=== PATIENT | female | born 1985 | race Caucasian/White ===

== ENCOUNTER 2018-02-07 00:34 | Emergency (ER) | payer BC, OTHER ==
[2018-02-07 01:50] LABS: Appearance,Urine Clear (Clear); Bilirubin,Urine Negative (Negative); Blood,Urine Negative (Negative); Color,Urine Yellow; Glucose,Urine (UA) Negative (Negative); Ketones,Urine 1+ (Negative); Leukocyte Esterase,Urine Small (Negative); Mucus,Urine Few /hpf; Nitrite,Urine Negative (Negative); PH, Urine 5.5 (5.0-8.0); Protein,Urine Trace (Negative); RBC,Urine 1 /hpf (0-5); Specific Gravity,Urine 1.029 (1.001-1.035); Squamous Epithelial Cell,Urine 3 /hpf (0-4); WBC,Urine 2 /hpf (0-5)
--- NOTE | 2018-02-07 02:08 | ED ---
General Adult HPI - General Chief complaint: Allergic Reaction Stated complaint: Allergic Reaction Time Seen by Provider: 02/07/18 00:44 Source: patient Mode of arrival: ambulatory Limitations: no limitations - History of Present Illness Initial comments: 32-year-old female patient presents the emergency department today for evaluation of right hand tingling, right foot tingling, and dark odorous urine. Patient states that she has been taking Flagyl for the last couple of days. States that the symptoms started after taking that. Patient denies any head injuries. Denies any headache, nausea, vomiting, dizziness, or weakness currently. Patient denies any new activities with her hands or feet. Patient denies any recent rash, fever, chills, shortness breath, chest pain, abdominal pain, diarrhea, constipation, back pain, hematuria, dysuria, urinary urgency, urinary frequency, visual changes, or any other complaints. - Related Data Home Medications Medication Instructions Recorded Confirmed Ferrous Sulfate [Feosol] 325 mg PO DAILY 01/25/16 01/25/16 Multivitamins, Thera [Multivitamin] 1 tab PO DAILY 01/25/16 01/25/16 Allergies Allergy/AdvReac Type Severity Reaction Status Date / Time Sulfa (Sulfonamide Allergy Unknown Verified 01/25/16 14:30 Antibiotics) Childhood metronidazole [From Flagyl] AdvReac Unknown Verified 02/07/18 00:42 Review of Systems ROS Statement: Those systems with pertinent positive or pertinent negative responses have been documented in the HPI. ROS Other: All systems not noted in ROS Statement are negative. Past Medical History Past Medical History: No Reported History Additional Past Medical History / Comment(s): migraines, syncope 01/25/16 History of Any Multi-Drug Resistant Organisms: None Reported Additional Past Surgical History / Comment(s): umbilical hernia repair Past Anesthesia/Blood Transfusion Reactions: No Reported Reaction Past Psychological History: No Psychological Hx Reported Smoking Status: Never smoker Past Alcohol Use History: Rare Past Drug Use History: None Reported - Past Family History Father Family Medical History: No Reported History General Exam Limitations: no limitations General appearance: alert, in no apparent distress, other (so well-developed, well-nourished adult female patient in no acute distress. Vital signs upon presentation are temperature 97.9F, pulse 95, respirations 18, blood pressure 124/81, pulse ox 99% on room air.) Eye exam: Present: normal appearance, PERRL, EOMI. Absent: scleral icterus, conjunctival injection, nystagmus, periorbital swelling ENT exam: Present: normal exam, normal oropharynx, mucous membranes moist Respiratory exam: Present: normal lung sounds bilaterally. Absent: respiratory distress, wheezes, rales, rhonchi, stridor Cardiovascular Exam: Present: regular rate, normal rhythm, normal heart sounds. Absent: systolic murmur, diastolic murmur, rubs, gallop, clicks GI/Abdominal exam: Present: soft, normal bowel sounds. Absent: distended, tenderness, guarding, rebound, rigid Neurological exam: Present: alert, oriented X3, CN II-XII intact, other ( strength in all 4 extremities is 5/5.) Psychiatric exam: Present: normal affect, normal mood Skin exam: Present: warm, dry, intact, normal color. Absent: rash Course Vital Signs 02/07/18 02/07/18 00:36 02:17 Temperature 97.9 F 98.1 F Pulse Rate 95 66 Respiratory 18 16 Rate Blood Pressure 124/81 128/61 O2 Sat by Pulse 99 99 Oximetry Medical Decision Making - Medical Decision Making 32-year-old female patient presented to the emergency department today for evaluation of right hand and foot tingling. Physical examination was unremarkable. Patient was neurologically intact. Urinalysis was obtained and showed no acute signs of infection. I did discuss with patient that numbness and tingling in hands and feet as well as a prickling sensation is a side effect of Flagyl. I did discuss that this could be from the medication. She is instructed to follow-up with her prescribing provider. She is instructed to return here immediately for any new, worsening, or concerning symptoms. She states that the tingling sensation has improved since being here. Return parameters discussed in detail. She verbalizes understanding and agreed with this plan. - Lab Data Lab Results 02/07/18 02/07/18 Range/Units 01:40 01:40 Urine Color Yellow Urine Appearance Clear (Clear) Urine pH 5.5 (5.0-8.0) Ur Specific [place] 1.029 (1.001-1.035) Urine Protein Trace H (Negative) Urine Glucose (UA) Negative (Negative) Urine Ketones 1+ H (Negative) Urine Blood Negative (Negative) Urine Nitrite Negative (Negative) Urine Bilirubin Negative (Negative) Urine Urobilinogen 2.0 (<2.0) mg/dL Ur Leukocyte Esterase Small H (Negative) Urine RBC 1 (0-5) /hpf Urine WBC 2 (0-5) /hpf Ur Squamous Epith Cells 3 (0-4) /hpf Urine Mucus Few H (None) /hpf Urine HCG, Qual Not Detected (Not Detectd) Disposition Clinical Impression: Medication side effect Disposition: HOME SELF-CARE Condition: Good Instructions: Metronidazole (By mouth) Additional Instructions: Follow-up with your doctor and let them know your side effects of the medication. Return here immediately for any new, worsening, or concerning symptoms. Is patient prescribed a controlled substance at d/c from ED?: No Referrals: Ranjith Kong MD [Primary Care Provider] - 1-2 days Time of Disposition: 02:08
[2018-02-07 02:18] VITALS: BP 128/61; PULSE 66; RESP 16; TEMP 98.1
== END 2018-02-07 02:18 | disposition home or self-care (01) ==
LOC: EC 00:34
DX: R20.2 Paresthesia of skin (principal); T37.3X5A Adverse effect of other antiprotozoal drugs, initial encounter; R20.0 Anesthesia of skin; R82.99 Other abnormal findings in urine; Z88.2 Allergy status to sulfonamides; Z88.1 Allergy status to other antibiotic agents
CPT/HCPCS: 81001; 81025; 99283

== ENCOUNTER 2018-02-26 16:00 | Emergency (ER) | payer BC ==
[2018-02-26 16:42] VITALS: PULSE 80; RESP 18; TEMP 98.2
--- NOTE | 2018-02-26 17:39 | XR ---
EXAMINATION TYPE: XR foot complete RT DATE OF EXAM: 02/26/2018 COMPARISON: NONE HISTORY: Pain TECHNIQUE: 3 views FINDINGS: I see no fracture nor dislocation. Metatarsals are intact. There are no erosions. IMPRESSION: Negative right foot exam.
[2018-02-26 17:58] VITALS: BP 115/79
--- NOTE | 2018-02-26 18:10 | ED ---
General Adult HPI - General Chief complaint: Extremity Injury, Lower Stated complaint: foot pain Time Seen by Provider: 02/26/18 16:49 Source: patient, RN notes reviewed Mode of arrival: ambulatory Limitations: no limitations - History of Present Illness Initial comments: 32-year-old female presents to the emergency department for a chief complaint of right foot pain. Patient was walking the other day when she felt pain in her right foot. Patient states she had x-rays at her primary care which were negative. Patient then contacted her primary care because the pain was still continuing 2 days later and he stated she should come to the emergency department. Patient states she is able to walk on it but after about 5 minutes begins to her. Patient denies pain in the calf or knee. Patient denies any fevers or chills. Patient denies any other injuries. Patient has any Motrin for the pain. Patient denies chance of .Patient has no other complaints at this time including shortness of breath, chest pain, abdominal pain, nausea or vomiting, headache, or visual changes. - Related Data Home Medications Medication Instructions Recorded Confirmed Ferrous Sulfate [Feosol] 325 mg PO DAILY 01/25/16 01/25/16 Multivitamins, Thera [Multivitamin] 1 tab PO DAILY 01/25/16 01/25/16 Previous Rx's Medication Instructions Recorded Ibuprofen [Motrin] 600 mg PO Q8HR PRN #20 tab 02/26/18 Allergies Allergy/AdvReac Type Severity Reaction Status Date / Time Sulfa (Sulfonamide Allergy Unknown Verified 01/25/16 14:30 Antibiotics) Childhood metronidazole [From Flagyl] AdvReac Unknown Verified 02/07/18 00:42 Review of Systems ROS Statement: Those systems with pertinent positive or pertinent negative responses have been documented in the HPI. ROS Other: All systems not noted in ROS Statement are negative. Past Medical History Past Medical History: No Reported History Additional Past Medical History / Comment(s): migraines, syncope 01/25/16 History of Any Multi-Drug Resistant Organisms: None Reported Past Surgical History: No Surgical Hx Reported Additional Past Surgical History / Comment(s): umbilical hernia repair Past Anesthesia/Blood Transfusion Reactions: No Reported Reaction Past Psychological History: No Psychological Hx Reported Smoking Status: Never smoker Past Alcohol Use History: Rare Past Drug Use History: None Reported - Past Family History Father Family Medical History: No Reported History General Exam Limitations: no limitations General appearance: alert, in no apparent distress Head exam: Present: atraumatic, normocephalic, normal inspection Eye exam: Present: normal appearance ENT exam: Present: normal exam, mucous membranes moist Neck exam: Present: normal inspection. Absent: tenderness, meningismus, lymphadenopathy Respiratory exam: Present: normal lung sounds bilaterally. Absent: respiratory distress, wheezes, rales, rhonchi, stridor Cardiovascular Exam: Present: regular rate, normal rhythm, normal heart sounds. Absent: systolic murmur, diastolic murmur, rubs, gallop, clicks Extremities exam: Present: full ROM (Full range motion of the right foot and digits of the right foot.), tenderness (Tenderness to the dorsal aspect of the right foot.), normal capillary refill (Refill less than 2 seconds and pedal pulse 2+ in the right foot.). Absent: pedal edema, joint swelling (No swelling , redness, or ecchymosis noted in the right foot. No lacerations or breaks in the skin.), calf tenderness (No tenderness in the calf. Negative Homans sign.) Course Vital Signs 02/26/18 02/26/18 02/26/18 16:37 17:46 18:24 Temperature 98.2 F 98.2 F Pulse Rate 80 80 80 Respiratory 18 18 18 Rate Blood Pressure 112/59 115/79 115/79 O2 Sat by Pulse 98 100 100 Oximetry Medical Decision Making - Medical Decision Making 32-year-old female presents to the emergency department for a chief complaint of right foot pain. Pain started when she was walking 2 days ago. Patient had a negative x-ray at that time. When patient contacted her primary care doctor he told her she should come here because the pain was continuing. Patient has full range of motion in the right foot and is able to walk on it. Sensation intact and neurovascular intact. Patient does have tenderness to the dorsal aspect but no swelling or ecchymosis noted. X-ray demonstratesNo fracture or dislocation in the right foot. Patient will follow-up with orthopedics. She will rest ice and elevate the foot. Patient was given an [place] wrap. She will use crutches for walking. She is aware she can return to the emergency Department if she has any worsening symptoms. Disposition Clinical Impression: Foot pain Disposition: HOME SELF-CARE Condition: Good Instructions: Foot Contusion (ED) Additional Instructions: Please take Motrin and Tylenol for pain. Please rest ice and elevate the foot. Please use [place] wrap. Use crutches as needed. Return to the emergency department if you have any worsening symptoms. Prescriptions: Ibuprofen [Motrin] 600 mg PO Q8HR PRN #20 tab PRN Reason: Pain Is patient prescribed a controlled substance at d/c from ED?: No Referrals: Ranjith Kong MD [Primary Care Provider] - 1-2 days Time of Disposition: 18:09
== END 2018-02-26 18:24 | disposition home or self-care (01) ==
LOC: EC 16:00
DX: M79.671 Pain in right foot (principal); Z79.899 Other long term (current) drug therapy; Z88.1 Allergy status to other antibiotic agents; Z88.2 Allergy status to sulfonamides
CPT/HCPCS: 99283

== ENCOUNTER → 2019-03-13 | Outpatient (CLI) | payer BC ==
--- NOTE | 2019-03-15 22:19 | US ---
EXAMINATION TYPE: US thyroid st tissue head/neck DATE OF EXAM: 03/13/2019 COMPARISON: NONE CLINICAL HISTORY: 33-year-old female R22.1 localized swelling mass of neck. Technique: Targeted sonographic examination at the site of patient's palpable abnormality in the subm ental region. FINDINGS: Emulsion Operator notes: Patient feels lump under chin for one month. Lump feels like the size of a pea. Emulsion Operator notes: Scanned directly over where patient feels palpable, under chin, and there is a 0.5 x 0.4 x 0.5 cm hypoechoic lesion with internal flow, probable lymph node. This is centered within th e subcutaneous adipose layer. IMPRESSION: Suspect a prominent 5 mm submental lymph node at the palpable site. Possibly reactive/post inflammato ry. If there is persistence or growth, the area can be reimaged.
== END | disposition home or self-care (01) ==
LOC: RADUSWWP 17:00
PROVIDERS: ATTEND Family Medicine
DX: R22.1 Localized swelling, mass and lump, neck (principal)
CPT/HCPCS: 76536

== ENCOUNTER → 2019-05-05 | Outpatient (CLI) | payer BC ==
--- NOTE | 2019-05-05 13:53 | US ---
EXAMINATION TYPE: US thyroid st tissue head/neck DATE OF EXAM: 05/05/2019 COMPARISON: US CLINICAL HISTORY: R59.1 Enlarged Lymph Nodes. Palp under chin, pt states this is a follow-up exam Probable lymph node under chin where pt feels palpable= 0.6 x 0.3 x 0.5 cm, essentially appears unc hanged IMPRESSION: As above. No significant interval change. No new or enlarging lesion identified. Finding favors benign. Consider repeat imaging if lesion becomes painful or is felt to enlarge clinically.
--- NOTE | 2019-05-05 13:54 | US ---
EXAMINATION TYPE: US axilla RT DATE OF EXAM: 05/05/2019 COMPARISON: NONE CLINICAL HISTORY: R59.1 Enlarged Lymph Nodes. Pt states palpable lump right axilla x few weeks Probable lymph node within right axilla where pt feels palpable= 0.7 x 0.3 x 0.7 cm IMPRESSION: Area of concern is felt to reflect prominent but subcentimeter benign right axillary lym ph node just superficial to the underlying pectoralis muscle in the subcutaneous fat of the right axi lla. Lymph node is presumed benign given subcentimeter size.
--- NOTE | 2019-05-05 15:57 | US ---
EXAMINATION TYPE: US groin RT DATE OF EXAM: 05/05/2019 COMPARISON: NONE CLINICAL HISTORY: R59.1 Enlarged Lymph Nodes. Pt states palpable lump right groin x few weeks Within right groin where pt feels palpable there is a probable lymph node= 1.9 x 0.4 x 1.5 cm IMPRESSION: Elongated prominent but benign-appearing subcentimeter right groin lymph node is seen wi th retention of normal fatty hilum, findings correlate with left groin. No suspicious mass or fluid c ollection is noted.
--- NOTE | 2019-05-06 08:19 | US ---
EXAMINATION TYPE: US groin LT DATE OF EXAM: 05/05/2019 COMPARISON: NONE CLINICAL HISTORY: R59.1 ENLARGED LYMPH NODES. Pt states left groin palp x many years At pt's palpable within left groin there is a probable lymph node= 0.4 x 0.8 x 0.6 cm/ Adjacent to palpable lymph node there is another lymph node= 0.7 cm Prominent but subcentimeter 2 adjacent subcutaneous lymph node in left groin with retention of fatty hilum on 6 images saved. IMPRESSION: As above. Findings correlate with right groin ultrasound. Lymph nodes appear benign. 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
== END | disposition home or self-care (01) ==
LOC: RADUSWWP 12:49
PROVIDERS: ATTEND Family Medicine
DX: R59.1 Generalized enlarged lymph nodes (principal)
CPT/HCPCS: 76536

== ENCOUNTER → 2020-09-07 | Outpatient (CLI) | payer BC ==
--- NOTE | 2020-09-08 12:55 | ECHOF ---
Referral Reason:R00.2 Palpitations MEASUREMENTS -------- HEIGHT: 157.5 cm WEIGHT: 48.1 kg BP: RVIDd: 2.4 cm (< 3.3) IVSd: 0.9 cm (0.6 - 1.1) LVIDd: 3.9 cm (3.9 - 5.3) LVPWd: 0.9 cm (0.6 - 1.1) IVSs: 1.2 cm LVIDs: 2.2 cm LVPWs: 1.6 cm LAESV Index (A-L): 18.64 ml/m Ao Diam: 2.5 cm (2.0 - 3.7) AV Cusp: 1.3 cm (1.5 - 2.6) LA Diam: 2.7 cm (2.7 - 3.8) MV EXCURSION: 22.396 mm (> 18.000) MV EF SLOPE: 82 mm/s (70 - 150) EPSS: 0.3 cm MV E Javon: 1.06 m/s MV DecT: 168 ms MV A Javon: 0.57 m/s MV E/A Ratio: 1.85 RAP: 5.00 mmHg RVSP: 17.96 mmHg FINDINGS -------- Sinus rhythm. This was a technically adequate study. The left ventricular size is normal. Left ventricular wall thickness is normal. There is normal g lobal left ventricular contractility. Overall left ventricular systolic function is normal with, an EF between 55 - 60 %. The diastolic filling pattern is normal for the age of the patient 7.00. The right ventricle is normal in size. Normal LA size by volume 22+/-6 ml/m2. The right atrial size is normal. Interatrial and interventricular septum intact. The aortic valve is trileaflet, and appears structurally normal. No aortic stenosis or regurgitation. The mitral valve is normal. No mitral regurgitation. Trace tricuspid regurgitation present. There is no evidence of pulmonary hypertension. The right ventricular systolic pressure, as measured by Doppler, is 17.96mmHg. Trace/mild (physiologic) pulmonic regurgitation. The aortic root size is normal. Normal inferior vena cava with normal inspiratory collapse consistent with estimated right atrial pre ssure of 5 mmHg. There is no pericardial effusion. CONCLUSIONS -------- 1. There is normal global left ventricular contractility. 2. Overall left ventricular systolic function is normal with, an EF between 55 - 60 %. 3. Normal LA size by volume 22+/-6 ml/m2. 4. The aortic valve is trileaflet, and appears structurally normal. No aortic stenosis or regurgitati on. 5. Trace tricuspid regurgitation present. 6. Trace/mild (physiologic) pulmonic regurgitation. COLD MILL SUPERVISOR: Renae Pepper RDCS
== END | disposition home or self-care (01) ==
LOC: RADECHMAIN 13:38
PROVIDERS: ATTEND Family Medicine
DX: I37.1 Nonrheumatic pulmonary valve insufficiency (principal)
CPT/HCPCS: 93306

== ENCOUNTER → 2023-05-27 | Outpatient (CLI) | payer OTHER ==
--- NOTE | 2023-05-27 15:35 | US ---
EXAMINATION TYPE: US thyroid st tissue head/neck DATE OF EXAM: 05/27/2023 COMPARISON: No direct comparisons CLINICAL INDICATION: Female, 37 years old with history of E06.9 THYROIDITIS; Hashimot[employer] GLAND SIZE: Right Lobe: 4.1 x 1.4 x 1.4 cm Overall Parenchyma: Heterogeneous Left Lobe: 4.5 x 1.3 x 1.5 cm Overall Parenchyma: Heterogeneous Isthmus Thickness: 0.24 cm NODULES RIGHT: # of nodules measured on right: 0 LEFT: # of nodules measured on left: 0 ISTHMUS: # of nodules measured in the isthmus: 0 Bilateral neck scanned, no evidence of lymphadenopathy. Grossly heterogeneous throughout IMPRESSION: Diffusely heterogenous thyroid gland without discrete nodule.
== END | disposition home or self-care (01) ==
LOC: RADUSWWP 15:04
PROVIDERS: ATTEND Family Medicine
DX: E06.9 Thyroiditis, unspecified (principal)
CPT/HCPCS: 76536